=== PATIENT | female | born 1955 | race Caucasian/White ===

== ENCOUNTER → 2017-11-26 | Outpatient (CLI) | payer BC ==
--- NOTE | 2017-11-27 08:45 | RADIOLOGY REPORT (SQ) ---
EXAM DESCRIPTION: PET CT SKULL/THIGH COMPLETED DATE/TIME: 11/26/2017 8:24 pm REASON FOR STUDY: LUNG CANCER C34.11 MALIGNANT NEOPLASM OF UPPER LOBE, RIGHT BRONCHUS OR L COMPARISON: CT chest [facility] 11/16/2017 RADIONUCLIDE AND DOSE: 12 mCi F18 FDG The route of agent administration: Intravenous FASTING BLOOD SUGAR: 104 mg/dl CONTRAST TYPE AND DOSE: No CT contrast given. TECHNIQUE: Blood glucose level was verified. Above dose of FDG was injected intravenously. 2-D seg mented attenuation correction images were obtained from the base of the skull to the midthighs. Nonc ontrast CT images were obtained for attenuation correction and fusion with emission images. CT image s were performed without oral or intravenous contrast and are not sensitive for parenchymal lesions. A series of overlapping emission PET images were obtained. Images reviewed and manipulated at [facility] work station by the radiologist. Images stored on PACS. LIMITATIONS: None. FINDINGS: HEAD AND NECK: 1.8 x 1.7 cm right carotid space lymph node, SUV 2.6. Right vocal cord par alysis CHEST: In the right middle lobe/inferior right hilum, a 3.6 by 3.1 cm mass is present with SUV of 8 w orrisome for primary lung tumor. This mass is best shown on axial image 103. Significant mediastinal adenopathy is present as follows: Right paratracheal 2.6 x 1.6 cm node with SUV 3.0 Precarinal 2.7 x 2.2 cm node SUV 4.9 Sub- carinal 3 x 2.2 cm node SUV 4.1 There is a small to moderate right pleural effusion without pleural activity. Thickened interlobular septa with patchy alveolar and interstitial infiltrates are present throughout the remainder of the right lung, which could represent lymphangitic tumor or superimposed infection. This patchy activity ranges from 2.1 to 2.5 SUV. ABDOMEN AND PELVIS: No areas of abnormal metabolic activity in the abdomen or pelvis. Non metabolic 2 x 1.5 cm left adrenal adenoma, SUV 0.99. Expected physiologic activity is present in the genitouri nary system and bowel. PROXIMAL LOWER EXTREMITIES: No areas of abnormal metabolic activity in the soft tissues of the lower extremities. BONES: No abnormal metabolic activity in the visualized skeleton. ADDITIONAL CT FINDINGS: Heavily calcified carotid bifurcations, aortic valve and coronary arteries. Trace pericardial effusion. IUD in the uterus. OTHER: Liver background activity 2.2 SUV. Blood pool background activity 1.6 SUV IMPRESSION: Malignant right middle lobe mass with malignant appearing mediastinal adenopathy, a righ t pleural effusion and diffuse interstitial increased markings throughout the right lung worrisome fo r lymphangitic tumor involvement. Aspiration pneumonia could not be excluded, patient has right-side d vocal cord paralysis TECHNICAL DOCUMENTATION: JOB ID: [id number] [employer]- All Rights Reserved Reading location - IP/workstation name: [facility]
== END ==
LOC: RAD 17:34
PROVIDERS: ATTEND Internal Medicine
DX: C34.11 Malignant neoplasm of upper lobe, right bronchus or lung (principal)
CPT/HCPCS: 78815; A9552

== ENCOUNTER 2017-12-06 17:37 | Emergency (ER) | payer BC ==
[2017-12-06] MEDS ORDERED: NORMAL SALINE 1000 ML 1,000 ML IV PRN (18:12)
--- NOTE | 2017-12-06 18:13 | ER Document Report ---
ED Medical Screen (RME) - General Chief Complaint: Palpitations Stated Complaint: RAPID HEART RATE Time Seen by Provider: 12/06/17 18:10 Mode of Arrival: Ambulatory Information source: Patient Notes: 62 years old female recently diagnosed with possible lung cancer had a biopsy done last week, was having coughing and shortness of breath as well as palpitation on and off therefore present to the ED. She has not been eating or drinking well. No fever chills or other constitutional symptoms She was diagnosed with pneumonia and treated recently. Right lung half the lung field he has inspiratory rales and crackles TRAVEL OUTSIDE OF THE [place] IN LAST 30 DAYS: No - Related Data Allergies/Adverse Reactions: Sulfa (Sulfonamide Antibiotics) Allergy (Verified 12/06/17 17:38) Past Medical History - Social History Chew tobacco use (# tins/day): No Drug Abuse: None - Past Medical History Cardiac Medical History: Reports: Hx Heart Attack, Hx Hypercholesterolemia, Hx Hypertension Pulmonary Medical History: Denies: Hx Tuberculosis Neurological Medical History: Denies: Hx Seizures Renal/ Medical History: Denies: Hx Peritoneal Dialysis Past Surgical History: Denies: Hx Hysterectomy, Hx Pacemaker - Immunizations Hx Diphtheria, Pertussis, Tetanus Vaccination: Yes - 06/2011 Physical Exam - Vital signs Vitals: Temp Pulse Resp BP Pulse Ox 98.7 F 132 H 18 135/96 H 94 12/06/17 17:56 12/06/17 17:56 12/06/17 17:56 12/06/17 17:56 12/06/17 17:56 Course - Vital Signs Vital signs: Temp Pulse Resp BP Pulse Ox 98.7 F 132 H 18 135/96 H 94 12/06/17 17:56 12/06/17 17:56 12/06/17 17:56 12/06/17 17:56 12/06/17 17:56 Doctor's Discharge - Discharge Referrals: ROLAN MAE MD [Primary Care Provider] - Follow up as needed
[2017-12-06 19:04] LABS: ABSOLUTE LYMPHOCYTES (AUTO) 2.1 10^3/uL (0.5-4.7); ABSOLUTE MONOCYTES (AUTO) 0.7 10^3/uL (0.1-1.4); ABSOLUTE NEUT (AUTO) 5.3 10^3/uL (1.7-8.2); BASOPHILS % (AUTO) 0.3 % (0-2); EOSINOPHILS % (AUTO) 0.5 % (0-6); HEMATOCRIT 44.9 % (36.0-47.0); HEMOGLOBIN 15.1 g/dL (12.0-15.5); LYMPHOCYTES % (AUTO) 25.3 % (13-45); MEAN CORPUSCULAR HEMOGLOBIN 28.3 pg (27.0-33.4); MEAN CORPUSCULAR HGB CONC 33.7 g/dL (32.0-36.0); MEAN CORPUSCULAR VOLUME 84 fl (80-97); MONOCYTES % (AUTO) 8.9 % (3-13); PLATELET COUNT 288 10^3/uL (150-450); RED BLOOD COUNT 5.35 10^6/uL (3.72-5.28); RED CELL DISTRIBUTION WIDTH 12.5 % (11.5-14.0); TOTAL CELLS COUNTED % (AUTO) 100 %; WHITE BLOOD COUNT 8.1 10^3/uL (4.0-10.5)
[2017-12-06 19:06] LABS: APPEARANCE,URINE CLOUDY; BILIRUBIN,URINE SMALL (NEGATIVE); CALCIUM OXALATE CRYSTALS,URINE FEW /HPF; GLUCOSE, URINE 50 mg/dL (NEGATIVE); KETONES,URINE 80 mg/dL (NEGATIVE); LEUKOCYTE ESTERASE,URINE SMALL (NEGATIVE); NITRITE,URINE NEGATIVE (NEGATIVE); PROTEIN,URINE 100 mg/dL (NEGATIVE); URINE SPECIFIC GRAVITY 1.025
[2017-12-06 19:08] LABS: COLOR,URINE DARK YELLOW
[2017-12-06 19:22] LABS: ALANINE AMINOTRANSFERASE 17 U/L (9-52); ALBUMIN 4.1 g/dL (3.5-5.0); ALKALINE PHOSPHATASE 60 U/L (38-126); ANION GAP 17 (5-19); ASPARTATE AMINO TRANSFERASE 39 U/L (14-36); BILIRUBIN,DIRECT 0.5 mg/dL (0.0-0.4); BILIRUBIN,TOTAL 1.2 mg/dL (0.2-1.3); BLOOD UREA NITROGEN 14 mg/dL (7-20); CALCIUM 10.4 mg/dL (8.4-10.2); CARBON DIOXIDE 27 mmol/L (22-30); CHLORIDE 95 mmol/L (98-107); GLUCOSE 127 mg/dL (75-110); POTASSIUM 3.5 mmol/L (3.6-5.0); SODIUM 139.3 mmol/L (137-145)
[2017-12-06] MEDS ORDERED: RINGERS SOLUTION,LACTATED 1,000 ML IV ONE (19:24)
--- NOTE | 2017-12-06 19:24 | EKG REPORT ---
SEVERITY:- BORDERLINE ECG - SINUS TACHYCARDIA BORDERLINE INFERIOR Q WAVES BORDERLINE T ABNORMALITIES, DIFFUSE LEADS : Confirmed by: Gabriel Blake MD 06-Dec-2017 19:24:00
[2017-12-06] MEDS ORDERED: NORMAL SALINE 1000 ML 1,000 ML IV ONE (19:42)
[2017-12-06] MEDS ORDERED: ONDANSETRON HCL INJ/PF 4 MG/2 ML SDV IV ONE ×2 (19:42→23:44)
--- NOTE | 2017-12-06 19:54 | ER Document Report ---
ED General - General Chief Complaint: Palpitations Stated Complaint: RAPID HEART RATE Time Seen by Provider: 12/06/17 18:10 Mode of Arrival: Ambulatory Information source: Patient, Relative, [facility] Records, Outside Facility Records Notes: 62-year-old female with coronary artery disease, hypertension, recent diagnosis of right lung cancer presents from her primary care physician's office after she was found to be persistently tachycardic with a rate reported to be in the 130s. Patient complaining of associated shortness of breath which she reports is not worse than it has been over the last few weeks. She does report a decrease in p.o. intake including food and fluids. She does report a decrease in urinary output. She states that she has had chronic nausea and just does not want to eat or drink anything. She denies any previous history of PE, DVT. She did have a recent thoracentesis at [facility] by Dr. davis. She is set to be under the care of Dr. Fields and has an upcoming appointment this Monday. She also had a recent bronchoscopy but does not have any results at this time. Patient denies leg swelling, prior history of PE or DVT. TRAVEL OUTSIDE OF THE [place] IN LAST 30 DAYS: No - HPI Onset: Just prior to arrival Onset/Duration: Gradual, Persistent Quality of pain: Achy, Pressure Severity: Moderate Associated symptoms: Chest pain, Nonproductive cough, Headache, Nausea, Shortness of breath. denies: Fever, Vomiting Exacerbated by: Denies Relieved by: Denies Similar symptoms previously: Yes Recently seen / treated by doctor: Yes - Recently discharged from [facility] - Related Data Allergies/Adverse Reactions: Sulfa (Sulfonamide Antibiotics) Allergy (Verified 12/06/17 17:38) Past Medical History - General Information source: Patient, Friend, [facility] Records, Outside Facility Records - Social History Smoking Status: Former Smoker Chew tobacco use (# tins/day): No Drug Abuse: None Lives with: Family Family History: Reviewed & Not Pertinent Patient has suicidal ideation: No Patient has homicidal ideation: No - Past Medical History Cardiac Medical History: Reports: Hx Heart Attack, Hx Hypercholesterolemia, Hx Hypertension Pulmonary Medical History: Reports: Hx Pneumonia Denies: Hx Tuberculosis Neurological Medical History: Denies: Hx Seizures Renal/ Medical History: Denies: Hx Peritoneal Dialysis Past Surgical History: Denies: Hx Hysterectomy, Hx Pacemaker - Immunizations Hx Diphtheria, Pertussis, Tetanus Vaccination: Yes - 06/2011 Review of Systems - Review of Systems Notes: REVIEW OF SYSTEMS: CONSTITUTIONAL : Denies fever, chills, or sweats. Denies recent illness. Denies weight loss, recent hospitalizations. EENT: Denies visual changes, eye pain. Denies nasal or sinus congestion or discharge. Denies sore throat, oral lesions, difficulty swallowing. CARDIOVASCULAR: Denies lower extremity edema. RESPIRATORY: Denies cough, cold, or chest congestion. GASTROINTESTINAL: Denies abdominal pain or distention. Denies nausea, vomiting , or diarrhea. Denies blood in vomitus, stools, or per rectum. Denies black, tarry stools. Denies constipation. GENITOURINARY: Denies difficulty urinating, painful urination, frequency, blood in urine, or vaginal discharge. MUSCULOSKELETAL: Denies back or neck pain or stiffness. Denies joint pain or swelling. SKIN: Denies rash, lesions or sores. HEMATOLOGIC : Denies easy bruising or bleeding. LYMPHATIC: Denies swollen glands. NEUROLOGICAL: Denies confusion or altered mental status. Denies passing out or loss of consciousness. Denies dizziness or lightheadedness. Denies headache. Denies weakness or paralysis. Denies problems difficulty with ambulation, slurred speech. Denies sensory loss, numbness, or tingling. Denies seizures. PSYCHIATRIC: Denies anxiety or stress. Denies depression, suicidal ideation, or homicidal ideation. Denies visual or auditory hallucinations. Physical Exam - Vital signs Vitals: Temp Pulse Resp BP Pulse Ox 98.7 F 132 H 18 135/96 H 94 12/06/17 17:56 12/06/17 17:56 12/06/17 17:56 12/06/17 17:56 12/06/17 17:56 - Notes Notes: PHYSICAL EXAMINATION: GENERAL: Well-appearing, well-nourished and in no acute distress. HEAD: Atraumatic, normocephalic. EYES: Pupils equal round and reactive to light, extraocular movements intact, conjunctiva are normal. ENT: Nares patent, oropharynx clear without exudates. Dry mucous membranes. NECK: Normal range of motion, supple without lymphadenopathy LUNGS: Diminished breath sounds in the right upper and right lower lung troy. HEART: tachycardic, regular rhythm, no murmurs. ABDOMEN: Soft, nontender, nondistended abdomen. No guarding, no rebound. No masses appreciated. Female : deferred Musculoskeletal: Normal range of motion, no pitting or edema. No cyanosis. NEUROLOGICAL: Cranial nerves grossly intact. Normal speech, normal gait. Normal sensory, motor exams PSYCH: Normal mood, normal affect. SKIN: Warm, Dry, normal turgor, no rashes or lesions noted. Course - Re-evaluation Re-evalutation: 12/06/17 23:45 Laboratory 12/06/17 12/06/17 12/06/17 18:46 18:46 18:46 WBC 8.1 RBC 5.35 H Hgb 15.1 Hct 44.9 MCV 84 MCH 28.3 MCHC 33.7 RDW 12.5 Plt Count 288 Seg Neutrophils % 65.0 Lymphocytes % 25.3 Monocytes % 8.9 Eosinophils % 0.5 Basophils % 0.3 Absolute Neutrophils 5.3 Absolute Lymphocytes 2.1 Absolute Monocytes 0.7 Absolute Eosinophils 0.0 Absolute Basophils 0.0 Sodium 139.3 Potassium 3.5 L Chloride 95 L Carbon Dioxide 27 Anion Gap 17 BUN 14 Creatinine 0.52 Est GFR ( Amer) > 60 Est GFR (Non-Af Amer) > 60 Glucose 127 H Lactic Acid Calcium 10.4 H Total Bilirubin 1.2 Direct Bilirubin 0.5 H Neonat Total Bilirubin Not Reportable Neonat Direct Bilirubin Not Reportable Neonat Indirect Bili Not Reportable AST 39 H ALT 17 Alkaline Phosphatase 60 Creatine Kinase CK-MB (CK-2) Troponin I Total Protein 7.0 Albumin 4.1 Urine Color DARK YELLOW Urine Appearance CLOUDY Urine pH 5.0 Ur Specific Corn 1.025 Urine Protein 100 H Urine Glucose (UA) 50 H Urine Ketones 80 H Urine Blood SMALL H Urine Nitrite NEGATIVE Urine Bilirubin SMALL H Urine Urobilinogen 4.0 H Ur Leukocyte Esterase SMALL H Urine WBC (Auto) 0 Urine RBC (Auto) 1 Squamous Epi Cells Auto <1 Calcium Oxalate Cr Auto FEW Urine Mucus (Auto) OCC Urine Ascorbic Acid NEGATIVE 12/06/17 12/06/17 12/06/17 18:46 18:46 18:46 WBC RBC Hgb Hct MCV MCH MCHC RDW Plt Count Seg Neutrophils % Lymphocytes % Monocytes % Eosinophils % Basophils % Absolute Neutrophils Absolute Lymphocytes Absolute Monocytes Absolute Eosinophils Absolute Basophils Sodium Potassium Chloride Carbon Dioxide Anion Gap BUN Creatinine Est GFR ( Amer) Est GFR (Non-Af Amer) Glucose Lactic Acid 1.4 Calcium Total Bilirubin Direct Bilirubin Neonat Total Bilirubin Neonat Direct Bilirubin Neonat Indirect Bili AST ALT Alkaline Phosphatase Creatine Kinase 31 CK-MB (CK-2) < 0.22 Troponin I < 0.012 Total Protein Albumin Urine Color Urine Appearance Urine pH Ur Specific Corn Urine Protein Urine Glucose (UA) Urine Ketones Urine Blood Urine Nitrite Urine Bilirubin Urine Urobilinogen Ur Leukocyte Esterase Urine WBC (Auto) Urine RBC (Auto) Squamous Epi Cells Auto Calcium Oxalate Cr Auto Urine Mucus (Auto) Urine Ascorbic Acid Chest X-Ray 12/06/17 18:11 IMPRESSION: Increased patchy airspace opacities throughout the right lung base. Similar right parahilar mass. Chest/Abdomen CTA 12/06/17 19:24 IMPRESSION: No emboli visualized in the main pulmonary arteries or the segmental branches.Similar 3.7 cm right middle lobe parahilar mass obstructing right middle lobe bronchus. Scattered patchy airspace opacities are present throughout the right upper, right middle, and right lower lobes, slightly increased compared with the prior study. Diffuse interstitial -reticulonodular thickening consistent with lymphangitic spread of tumor. Moderate right pleural effusion, slightly diminished compared with the prior exam. Patient declining admission at this 12/07/17 14:18 62-year-old female presents from her primary care physician's office after found to be persistently tachycardic. Patient was recently diagnosed with right -sided lung cancer. Upon arrival patient is tachycardic but not hypoxic or febrile. Patient appears dehydrated but does not appear toxic. She is in no acute respiratory distress. She states that her shortness of breath is no worse than it has been over the last couple of months. Patient was recently released from [facility] where she was diagnosed with this cancer and a thoracentesis was performed. She states that approximately 1 L of fluid was removed and the procedure was stopped early because of the patient's intolerance. Denies any prior history of PE or DVT. CBC is without leukocytosis or anemia. CMP shows no electrolyte abnormalities. Patient does have an elevated calcium which would be suspected with cancer. Urinalysis shows significant ketones which is consistent with dehydration. Cardiac enzymes within normal limits. Friend is at the bedside and states that the patient has just been refusing to drink water because of her persistent nausea. She does have Zofran at home but has yet to fill the prescription. CTA was obtained to assess for evidence of PE. This shows perihilar mass and a moderate right pleural effusion which is slightly diminished from previous exam. Patient did receive 3 L of IV fluids, Zofran. Her heart rate has improved to 96 prior to discharge. She is able to tolerate fluids after receiving Zofran. Hospital admission was offered multiple times but patient declines. Her friend is at the bedside and states that she believes that between her and herself she would be able to take care of the patient and encourage her to drink fluids. Patient does have an upcoming appointment with oncology and is requesting discharge home. Patient provided the opportunity to ask questions, and express concerns. Discharge instructions discussed. Patient is agreeable with discharge home. Return indications explained and discussed with the patient who displays understanding. Patient encouraged to return to the emergency department immediately with any concerns. 12/07/17 14:23 - Vital Signs Vital signs: Temp Pulse Resp BP Pulse Ox 98.7 F 132 H 20 137/75 H 97 12/06/17 17:56 12/06/17 17:56 12/06/17 23:57 12/06/17 23:57 12/07/17 00:00 - Laboratory Result Diagrams: 12/06/17 18:46 12/06/17 18:46 Laboratory results interpreted by me: 12/06/17 12/06/17 12/06/17 18:46 18:46 18:46 RBC 5.35 H Potassium 3.5 L Chloride 95 L Glucose 127 H Calcium 10.4 H Direct Bilirubin 0.5 H AST 39 H Urine Protein 100 H Urine Glucose (UA) 50 H Urine Ketones 80 H Urine Blood SMALL H Urine Bilirubin SMALL H Urine Urobilinogen 4.0 H Ur Leukocyte Esterase SMALL H - Diagnostic Test Radiology reviewed: Image reviewed, Reports reviewed - EKG Interpretation by Me EKG shows normal: Sinus rhythm Rate: Normal Rhythm: NSR Discharge - Discharge Clinical Impression: Tachycardia, Pleural effusion, Dehydration Lung cancer Qualifiers: Laterality: right Lung location: middle lobe of lung Qualified Code(s): C34.2 - Malignant neoplasm of middle lobe, bronchus or lung Condition: Fair Disposition: HOME, SELF-CARE Instructions: Dehydration ([facility]), Nausea or Vomiting, Nonspecific ([facility]), Pleural Effusion ([facility]) Additional Instructions: Please keep your already scheduled appointment with Dr. Fields on December 08. Your CAT scan today did not show any evidence of a clot in your lung. It does show that there is fluid in your lung which you are ready now. Please return to the emergency department with any concerns, worsening shortness of breath. Forms: Elevated Blood Pressure Referrals: ROLAN MAE MD [Primary Care Provider] - Follow up as needed
--- NOTE | 2017-12-06 20:10 | RADIOLOGY REPORT (SQ) ---
EXAM DESCRIPTION: CHEST SINGLE VIEW COMPLETED DATE/TIME: 12/06/2017 7:45 pm REASON FOR STUDY: Pneumonia COMPARISON: 11/26/2017 EXAM PARAMETERS: NUMBER OF VIEWS: One view. TECHNIQUE: Single frontal radiographic view of the chest acquired. RADIATION DOSE: NA LIMITATIONS: None. FINDINGS: LUNGS AND PLEURA: Increased patchy airspace opacities throughout the right lung base. Sim ilar right parahilar mass. MEDIASTINUM AND HILAR STRUCTURES: Similar right parahilar mass HEART AND VASCULAR STRUCTURES: Heart normal in size. Normal vasculature. BONES: No acute findings. HARDWARE: None in the chest. OTHER: No other significant finding. IMPRESSION: Increased patchy airspace opacities throughout the right lung base. Similar right parah ilar mass. TECHNICAL DOCUMENTATION: JOB ID: [id number] 2010 [employer]- All Rights Reserved Reading location - IP/workstation name: [email or web address]
--- NOTE | 2017-12-06 21:15 | RADIOLOGY REPORT (SQ) ---
EXAM DESCRIPTION: CTA CHEST COMPLETED DATE/TIME: 12/06/2017 8:54 pm REASON FOR STUDY: roma lubin COMPARISON: 11/26/2017 TECHNIQUE: CT scan of the chest performed using helical scanning technique with dynamic intravenous contrast injection. Images reviewed with lung, soft tissue and bone windows. Reconstructed coronal and sagittal MPR images reviewed. Additional 3 dimensional post-processing performed to develop Maximal Intensity Projection images (IA P). All images stored on PACS. All CT scanners at this facility use dose modulation, iterative reconstruction, and/or weight based d osing when appropriate to reduce radiation dose to as low as reasonably achievable (ALARA). [facility]: Dose Right [facility]: CareDose [facility]: Dose Right [facility]: Teradose 4D [facility]: [id number] CONTRAST TYPE AND DOSE: contrast/concentration: Isovue 350.00 mg/ml; Total Contrast Delivered: 65.0 ml; Total Saline Delivered: 70.0 ml Contrast bolus optimized for the pulmonary arteries. Not diagnostic for the aorta. RENAL FUNCTION: GFR > 60. RADIATION DOSE: CT Rad equipment meets quality standard of care and radiation dose reduction techniq ues were employed. CTDIvol: 6.6 - 14.3 mGy. DLP: 564 mGy-cm. . LIMITATIONS: None. FINDINGS: LUNGS AND PLEURA: Similar 3.7 cm right middle lobe parahilar mass obstructing right middle lobe bronchus. Scattered patchy airspace opacities are present throughout the right upper, right mi ddle, and right lower lobes, slightly increased compared with the prior study. Diffuse interstitial -reticulonodular thickening consistent with lymphangitic spread of tumor. Moderate right pleural eff usion, slightly diminished compared with the prior exam. The left lung remains clear. AORTA AND GREAT VESSELS: No aneurysm. Contrast bolus not optimized for the aorta. HEART: Small pericardial effusion. Mild coronary artery calcifications. PULMONARY ARTERIES: No emboli visualized in the main pulmonary arteries or the segmental branches. HILAR AND MEDIASTINAL STRUCTURES: Similar bulky nodes. HARDWARE: None in the chest. UPPER ABDOMEN: Left adrenal nodule. Limited exam. THYROID AND OTHER SOFT TISSUES: No masses. No adenopathy. BONES: No acute finding. 3D MIPS: Confirm above findings. OTHER: No other significant finding. IMPRESSION: No emboli visualized in the main pulmonary arteries or the segmental branches.Similar 3. 7 cm right middle lobe parahilar mass obstructing right middle lobe bronchus. Scattered patchy airsp tan opacities are present throughout the right upper, right middle, and right lower lobes, slightly i ncreased compared with the prior study. Diffuse interstitial -reticulonodular thickening consistent with lymphangitic spread of tumor. Moderate right pleural effusion, slightly diminished compared wit h the prior exam. COMMENT: Quality ID # [id number]: Final reports with documentation of one or more dose reduction techniques (e.g., Automated exposure control, adjustment of the mA and/or kV according to patient size, use of iterative reconstruction technique) TECHNICAL DOCUMENTATION: JOB ID: [id number] 2010 [employer]- All Rights Reserved Reading location - IP/workstation name: [facility] [employer] [facility]
[2017-12-06] MEDS ORDERED: GUAIFENESIN/CODEINE PHOS 100-10 MG/ 5 ML UDC PO ONE (21:32)
[2017-12-06 21:56] LABS: CREATINE KINASE MB < 0.22 ng/mL (<4.55); TROPONIN I < 0.012 ng/mL
[2017-12-06] MEDS ORDERED: ONDANSETRON ODT 4 MG TAB (6 TAB/ER DISP) PO PRN (23:44)
[2017-12-07 00:25] VITALS: BP 137/75
== END 2017-12-07 00:05 | disposition home or self-care (01) ==
LOC: ER 17:37
DX: R00.0 Tachycardia, unspecified (principal); E86.0 Dehydration; C34.2 Malignant neoplasm of middle lobe, bronchus or lung; R05 Cough; R00.2 Palpitations; I25.10 Atherosclerotic heart disease of native coronary artery without angina pectoris; I10 Essential (primary) hypertension; R07.9 Chest pain, unspecified; R51 Headache; R06.02 Shortness of breath; Z88.2 Allergy status to sulfonamides
CPT/HCPCS: 93005; 99285; 96360; 96361; 36415; 87040; 82553; 82550; 85025; 87077; 80053; 81001; 84484; 87186; 83605; 71045; 71275; 93010; J2405; J7030; J7120

== ENCOUNTER 2018-01-15 07:13 | Day surgery (SDC) | payer BC ==
[~2018-01-15 07:13] MED LIST: CEFAZOLIN 1 GM/D5W RTU 1 GM/50 ML RTUPB IV PRN; DIAZEPAM 5 MG TABLET PO PRN; OXYCODONE-ACETAMINOPHEN 5-325 MG TABLET PO PRN
[2018-01-15] MEDS ORDERED: CEFAZOLIN 1 GM/D5W RTU 1 GM/50 ML RTUPB IV ONE (08:02)
[2018-01-15 08:36] LABS: HEMATOCRIT 38.7 % (36.0-47.0); MEAN CORPUSCULAR HEMOGLOBIN 26.8 pg (27.0-33.4); MEAN CORPUSCULAR HGB CONC 33.5 g/dL (32.0-36.0); MEAN CORPUSCULAR VOLUME 80 fl (80-97); RED BLOOD COUNT 4.84 10^6/uL (3.72-5.28); RED CELL DISTRIBUTION WIDTH 12.7 % (11.5-14.0); WHITE BLOOD COUNT 2.6 10^3/uL (4.0-10.5)
[2018-01-15] MEDS ORDERED: DIAZEPAM 5 MG TABLET ONE (08:46)
[2018-01-15 09:02] LABS: ANION GAP 12 (5-19); BLOOD UREA NITROGEN 14 mg/dL (7-20); CALCIUM 9.8 mg/dL (8.4-10.2); CARBON DIOXIDE 24 mmol/L (22-30); CHLORIDE 100 mmol/L (98-107); GLUCOSE 95 mg/dL (75-110); POTASSIUM 4.3 mmol/L (3.6-5.0); SODIUM 136.1 mmol/L (137-145)
[2018-01-15 09:09] LABS: PLATELET COUNT 37 10^3/uL (150-450)
[2018-01-15] MEDS ORDERED: BACITRACIN INJ 50,000 UNIT VIAL ONE (10:13)
[2018-01-15] MEDS ORDERED: LIDOCAINE 0.5% INJ-PF (5 MG/ML) 50 ML SDV ONE (10:13)
[2018-01-15] MEDS ORDERED: MIDAZOLAM 2 MG/2 ML INJ ONE (10:16)
[2018-01-15] MEDS ORDERED: FENTANYL CITRATE INJ/PF 100 MCG/2 ML AMPUL ONE (10:16)
--- NOTE | 2018-01-15 11:47 | Discharge Summary ---
Discharge Summary (SDC) - Discharge Final Diagnosis: Lung cancer Date of Surgery: 01/15/18 Discharge Date: 01/15/18 Condition: Fair Treatment or Instructions: Discharge home [after recovery per ASU criteria]. Diet , as tolerated, when fully awake advance as tolerated. Activities within moderation encouraged. Follow up in my office by appointment in about [1 week]. Call for appointment. Leave wounds [covered], [keep clean and dry, until office visit in 1 week]. Hold of on school/work [until evaluation in office]. Meds per med rec. Percocet. May shower [in 48 hrs], [try to keep operated area as dry as possible]. Referrals: NIKITA AVELAR MD [Primary Care Provider] - Discharge Diet: As Tolerated Respiratory Treatments at Home: Deep Breathing/Coughing Discharge Activity: Activity As Tolerated Report the Following to Your Physician Immediately: Shortness of Breath, Unusual Bleeding
--- NOTE | 2018-01-15 11:52 | Operative Report ---
Operative Report DATE OF SURGERY: 01/15/18 PREOPERATIVE DIAGNOSIS: Lung cancer POSTOPERATIVE DIAGNOSIS: Lung cancer OPERATION: 1. Ultrasound evaluation of the left internal jugular vein and the left subclavian veins. 2. Insertion of left-sided Port-A-Cath. 3. Angiogram and interpretation. SURGEON: FRANKY MOFFETT CARPENTER: None. ANESTHESIA: Moderate Sedation TISSUE REMOVED OR ALTERED: Not applicable. COMPLICATIONS: None. ESTIMATED BLOOD LOSS: 5 mL. INTRAOPERATIVE FINDINGS: Of small, bifurcated left internal jugular vein. Several attempts were unsuccessful in access even after rehydrating the patient. Access gained under ultrasound guidance into the left subclavian vein which is appropriately dilated up to 1.5 cm. Satisfactory insertion of Port-A- Cath. Easy egress of blood and ingress of heparinized solution. Smooth flow of contrast through the catheter and the right atrium. PROCEDURE: After obtaining informed consent, the patient was taken to the [facility] and positioned supine. The [left neck and chest were prepared with chlorhexidine and draped out with sterile linen. After the " universal timeout", in which it was verified that the patient continued to receive antibiotic, the procedure commenced. A steriley sheathed ultrasound probe was used to evaluate the left internal jugular vein. Local anesthesia was infiltrated adjacent to the probe. Access into the left internal jugular vein was attempted using a micropuncture needle. Diligent attempts even after rehydrating the patient were unsuccessful. Ultrasound evaluation of the left subclavian vein was now obtained using a micropuncture needle, followed by micropuncture wire and then a micropuncture catheter. This was followed by introduction of a 0.035 guidewire the tip of which was placed down into the inferior vena cava . The port sites was marked , locally anesthetized and incision made. Dissection now proceeded to the deep subcutaneous subcutaneous tissues so that a pocket for the port was made. Meticulous hemostasis was secured and the catheter was inserted. Proximally, the catheter was now positioned using a peel-away sheath. Distally the catheter was tailored to an appropriate length and then mated to the port using the contained fixating device. The port was now placed in the pocket and the catheter optimally positioned. The port was accessed with a [place] needle and an angiogram done under digital subtraction. The findings as dictated. With adequate and satisfactory positioning, both lumens of the chamber were irrigated with heparinized solution. The wounds were now closed using interrupted 3-0 PDS to the subcutaneous tissues and a continuous subcuticular suture of 4-0 Monocryl to the skin. These are reinforced with Steri-Strips over benzoin and then dressings applied. Time: 1.4 minute. Dose: 11.21 m Gy Contrast: 5 Mls. Isovue 300. Copies of the dictated operative report for Dr. Franky Frias MD.
--- NOTE | 2018-01-15 12:19 | RADIOLOGY REPORT (SQ) ---
EXAM DESCRIPTION: PORTACATH INSERTION; GUIDANCE FLUOROSCOPIC COMPLETED DATE/TIME: 01/15/2018 11:49 am REASON FOR STUDY: C34.11 RT UPPER LUNG C34.11 MALIGNANT NEOPLASM OF UPPER LOBE, RIGHT BRONCHUS OR L COMPARISON: CT chest 12/06/2017 FLUOROSCOPY TIME: 1.4 minutes 24 images saved to PACS. TECHNIQUE: Intra-operative images acquired during surgical procedure to evaluate progress. NUMBER OF IMAGES: 24 digital images LIMITATIONS: None. FINDINGS: Imaging and fluoro during placement of a left-sided permanent central line with the tip in the superior vena cava. Please see the operative report from Dr. Frias IMPRESSION: IMAGE(S) OBTAINED DURING PROCEDURE. COMMENT: Quality ID 145: Final reports for procedures using fluoroscopy that document radiation exp osure indices, or exposure time and number of fluorographic images (if radiation exposure indices are not available) Please consult full operative report of the attending physician for description of the procedure. TECHNICAL DOCUMENTATION: JOB ID: [id number] [employer]- All Rights Reserved Reading location - IP/workstation name: [facility]
--- NOTE | 2018-01-15 12:19 | RADIOLOGY REPORT (SQ) ---
EXAM DESCRIPTION: PORTACATH INSERTION; GUIDANCE FLUOROSCOPIC COMPLETED DATE/TIME: 01/15/2018 11:49 am REASON FOR STUDY: C34.11 RT UPPER LUNG C34.11 MALIGNANT NEOPLASM OF UPPER LOBE, RIGHT BRONCHUS OR L COMPARISON: CT chest 12/06/2017 FLUOROSCOPY TIME: 1.4 minutes 24 images saved to PACS. TECHNIQUE: Intra-operative images acquired during surgical procedure to evaluate progress. NUMBER OF IMAGES: 24 digital images LIMITATIONS: None. FINDINGS: Imaging and fluoro during placement of a left-sided permanent central line with the tip in the superior vena cava. Please see the operative report from Dr. Frias IMPRESSION: IMAGE(S) OBTAINED DURING PROCEDURE. COMMENT: Quality ID 145: Final reports for procedures using fluoroscopy that document radiation exp osure indices, or exposure time and number of fluorographic images (if radiation exposure indices are not available) Please consult full operative report of the attending physician for description of the procedure. TECHNICAL DOCUMENTATION: JOB ID: [id number] [employer]- All Rights Reserved Reading location - IP/workstation name: [facility]
[2018-01-15 13:16] VITALS: BP 140/94
== END 2018-01-15 13:05 | disposition home or self-care (01) ==
LOC: CCL 07:13
PROVIDERS: ATTEND Surgery
DX: C34.11 Malignant neoplasm of upper lobe, right bronchus or lung (principal); I25.10 Atherosclerotic heart disease of native coronary artery without angina pectoris; I10 Essential (primary) hypertension; E78.00 Pure hypercholesterolemia, unspecified; Z87.891 Personal history of nicotine dependence; Z79.899 Other long term (current) drug therapy; Z01.818 Encounter for other preprocedural examination
CPT/HCPCS: 36415; 85027; 80048; 36561; 76937; 77001; C1752; C1788; Q9967; J2250; J3490 ×2; J0690; J3010; J1644

== ENCOUNTER → 2018-02-09 | Outpatient (CLI) | payer BC ==
--- NOTE | 2018-02-09 09:03 | RADIOLOGY REPORT (SQ) ---
EXAM DESCRIPTION: CT CHEST WITH COMPLETED DATE/TIME: 02/09/2018 8:08 am REASON FOR STUDY: LUNG CA (C34.11) C34.11 MALIGNANT NEOPLASM OF UPPER LOBE, RIGHT BRONCHUS OR L COMPARISON: 12/06/2017 TECHNIQUE: CT scan of the chest performed using helical scanning technique with dynamic intravenous contrast injection. Images reviewed with lung, soft tissue and bone windows. Reconstructed coronal and sagittal MPR and MIP images reviewed. All images stored on PACS. All CT scanners at this facility use dose modulation, iterative reconstruction, and/or weight based d osing when appropriate to reduce radiation dose to as low as reasonably achievable (ALARA). [facility]: Dose Right [facility]: CareDose [facility]: Dose Right [facility]: Teradose 4D [facility]: SensorWave CONTRAST TYPE AND DOSE: 70.2 cc Omnipaque 350 RENAL FUNCTION: Creatinine - 0.47 BUN=14 RADIATION DOSE: Total exam DLP: 646.62 mGy-cm. LIMITATIONS: None. FINDINGS: LUNGS AND PLEURA: Since the previous examination dated 12/06/2017, significant marked incr eased in the right pleural effusion. Very large pleural effusion is identified on the current examin ation. Mild to moderate narrowing of the distal right mainstem bronchus and marked narrowing of the right proximal-middle lobe bronchi. The mid-distal right upper lobe bronchus is obstructed. The grant earance of the right lung has changed. There is almost complete consolidation of the right lung with some sparing in the right upper lobe. Considerations for this finding includes inflammatory changes , atelectasis. The previously identified right middle lobe-parahilar mass is not visualized, may be related to previous treatment and or obscuration of any remaining mass by the right lung consolidatio n. New small left pleural effusion. The left lung remains clear. The left central airway is clear. No pneumothorax. HILAR AND MEDIASTINAL STRUCTURES: Persistent mediastinal lymphadenopathy which is decreasing. The ly mph node adjacent and inferior to the mid-distal abdominal aorta on the left has decreased in size in the interval. HEART AND VASCULAR STRUCTURES: Atherosclerotic changes involving the thoracic aorta. Coronary arter y calcifications. No aneurysm or dissection. No central pulmonary emboli. Persistent pericardial e ffusion. HARDWARE: Left Hbdfle-J-Ogrh catheter. UPPER ABDOMEN: Please see CT abdomen report. THYROID AND OTHER SOFT TISSUES: No masses. No adenopathy. BONES: The osseous structures are stable in appearance. OTHER: No other significant finding. IMPRESSION: 1. Since the previous examination dated 12/06/2017, significant marked increase in size of the right pleural effusion. Interval change in the appearance of the right lung with almost compl ete consolidation identified which may be on the basis of inflammatory changes/atelectasis, possibly related to prior treatment. 2. The previously identified right middle lobe-parahilar mass is not visualized, may be related to t reatment and or any remaining mass obscured by the right lung consolidation. 3. New small left pleural effusion. 4. Persistent mediastinal lymphadenopathy which is decreasing in size. TECHNICAL DOCUMENTATION: JOB ID: [id number] Quality ID # [id number]: Final reports with documentation of one or more dose reduction techniques (e.g., Au tomated exposure control, adjustment of the mA and/or kV according to patient size, use of iterative reconstruction technique) 2010 [employer]- All Rights Reserved Reading location - IP/workstation name: [email or web address]
--- NOTE | 2018-02-09 09:39 | RADIOLOGY REPORT (SQ) ---
EXAM DESCRIPTION: CT ABD/PELVIS WITH IV ONLY COMPLETED DATE/TIME: 02/09/2018 8:08 am REASON FOR STUDY: LUNG CA (C34.11) C34.11 MALIGNANT NEOPLASM OF UPPER LOBE, RIGHT BRONCHUS OR L COMPARISON: 07/04/2011 TECHNIQUE: CT scan of the abdomen and pelvis performed using helical scanning technique with dynamic intravenous contrast injection. No oral contrast. Images reviewed with lung, soft tissue, and bone windows. Reconstructed coronal and sagittal MPR images reviewed. Delayed images for evaluation of the urinary system also acquired. All images stored on PACS. All CT scanners at this facility use dose modulation, iterative reconstruction, and/or weight based d osing when appropriate to reduce radiation dose to as low as reasonably achievable (ALARA). [facility]: Dose Right [facility]: CareDose [facility]: Dose Right [facility]: Teradose 4D [facility]: [place] CONTRAST TYPE AND DOSE: contrast/concentration: Isovue 350.00 mg/ml; Total Contrast Delivered: 70.0 ml; Total Saline Delivered: 66.0 ml RENAL FUNCTION: Creatinine- 0.47 BeUN=14 RADIATION DOSE: CT Rad equipment meets quality standard of care and radiation dose reduction techniq ues were employed. CTDIvol: 4.4 - 4.5 mGy. DLP: 647 mGy-cm.. LIMITATIONS: None. FINDINGS: LOWER CHEST: Please see CT chest report. LIVER: Normal size. No masses. No dilated ducts. The hepatic and portal veins are patent. SPLEEN: Normal size. No focal lesions. PANCREAS: No masses. No significant calcifications. No adjacent inflammation or peripancreatic fluid collections. Pancreatic duct not dilated. GALLBLADDER: The gallbladder is dilated. Mild diffuse gallbladder wall thickening, similar finding to the prior examination. A small amount of pericholecystic fluid is noted. ADRENAL GLANDS: Stable left adrenal low attenuated nodule, may represent an adenoma. RIGHT KIDNEY AND URETER: Small nonobstructing right renal calculus in the lower pole. LEFT KIDNEY AND URETER: Stable too small to characterize hypoattenuated renal lesion. No significant calcifications. No hydronephrosis or hydroureter. AORTA AND VESSELS: Mild atherosclerotic changes involving the abdominal aorta and branch vessels. N o aneurysm. No dissection. Renal arteries, SMA, celiac without stenosis. RETROPERITONEUM: No retroperitoneal adenopathy, hemorrhage or masses. BOWEL AND PERITONEAL CAVITY: No masses or inflammatory changes. No free fluid or peritoneal masses. APPENDIX: Normal. PELVIS: In the right obturator-right hemipelvis region, a large bulky lobulated soft tissue mass wit h the largest component measuring 2.7 cm x 2.3 cm, axial images 66-75, series 8. It lies inferior and adjacent to the right external iliac vessels and the right iliacus muscle. It also lies adjacent an d separate to the right iliac bone. There is some extension of the mass into the right inguinal richard on. Considerations for this finding includes metastatic disease. The appearance of the uterus is stable with IUD suggested. No free fluid. Normal bladder. ABDOMINAL WALL: No masses. No hernias. BONES: The osseous structures are stable in appearance. OTHER: No other significant finding. IMPRESSION: 1. Stable appearance to the low attenuated left adrenal nodule since the prior examinat ion dated 07/04/2011. Considerations for this finding includes an adenoma. 2. The gallbladder is dilated and a small amount parent cholecystic fluid is noted. Correlation sug gested. 3. Small nonobstructing right renal calculus. 4. A slightly heterogenous appearing bulky lobulated soft tissue mass in the right obturator-right h emipelvis region as detailed above. Considerations for this finding includes metastatic disease. 5. Additional stable findings. TECHNICAL DOCUMENTATION: JOB ID: [id number] Quality ID # 436: Final reports with documentation of one or more dose reduction techniques (e.g., Au tomated exposure control, adjustment of the mA and/or kV according to patient size, use of iterative reconstruction technique) 2010 [employer]- All Rights Reserved Reading location - IP/workstation name: [email or web address]
== END ==
LOC: RAD 07:24
PROVIDERS: ATTEND Internal Medicine
DX: C34.11 Malignant neoplasm of upper lobe, right bronchus or lung (principal); R19.00 Intra-abdominal and pelvic swelling, mass and lump, unspecified site; N20.0 Calculus of kidney
CPT/HCPCS: 71260; 74177

== ENCOUNTER 2018-02-15 09:16 | Day surgery (SDC) | payer BC ==
[2018-02-15] MEDS ORDERED: ONDANSETRON HCL INJ/PF 4 MG/2 ML SDV ONE ×2 (10:41→10:42)
[2018-02-15] MEDS ORDERED: GLUCAGON,HUMAN RECOMB 1 MG INJ ONE (10:43)
[2018-02-15] MEDS ORDERED: FLUMAZENIL INJ 0.5 MG/5 ML VIAL ONE (10:43)
[2018-02-15] MEDS ORDERED: EPINEPHRINE INJ 1 MG/10 ML DISP.SYRIN ONE (10:43)
[2018-02-15] MEDS ORDERED: NALOXONE HCL INJ/PF 0.4 MG/1 ML SDV ONE (10:43)
[2018-02-15] MEDS: MIDAZOLAM 2 MG/2 ML INJ ONE ×3 (10:58→11:07)
[2018-02-15] MEDS ORDERED: LIDOCAINE 2% INJ (20 MG/ML) 20 ML MDV ONE (10:59)
[2018-02-15] MEDS: FENTANYL CITRATE INJ/PF 100 MCG/2 ML AMPUL ONE ×3 (11:00→11:11)
--- NOTE | 2018-02-15 12:15 | Discharge Summary ---
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 Referrals: NIKITA AVELAR MD [Primary Care Provider] - Discharge Diet: As Tolerated Discharge Activity: Activity As Tolerated Report the Following to Your Physician Immediately: Shortness of Breath, Increase in Pain, Fever over 101 Degrees
--- NOTE | 2018-02-15 12:28 | Operative Report ---
Operative Report DATE OF SURGERY: 02/15/18 PREOPERATIVE DIAGNOSIS: Malignant right pleural effusion POSTOPERATIVE DIAGNOSIS: Same OPERATION: 1. Focused ultrasound of the right chest. 2. Insertion of 16 [place] right Pleurx catheter into the pleural space SURGEON: KARSON EDWARDS ANESTHESIA: Moderate Sedation TISSUE REMOVED OR ALTERED: None COMPLICATIONS: None ESTIMATED BLOOD LOSS: Scant INTRAOPERATIVE FINDINGS: See below PROCEDURE: The patient was taken from the holding area to the fifth floor endoscopy suite where monitoring devices were attached, the patient was placed in the left side down right side up position for intended drainage of the right chest up. Appropriate level of conscious sedation was induced. Surgical plan and surgical timeout were reviewed. The right anterior lateral chest wall was prepped and draped with chlorhexidine. A suitable site for placement of Pleurx catheter was chosen at approximately ICS 9 along the mid axillary line. Skin was anesthetized with 1% plain lidocaine. A small incision was made over the lateral chest, and using the 14-gauge needle and introducer, a wire was threaded into the right pleural space. A suitable site for exit of the catheter was chosen inferior and anterior to the initial stab wound. Skin was anesthetized lidocaine, a federico made in the skin with the 11 blade, and the Pleurx catheter tunnel between the 2 incisions. We then threaded a 16 [place] dilator introducer sheath over the wire into the right pleural space, remove the wire and dilator and threaded the catheter into the strip away sheath, removing the strip away sheath leaving the catheter in good position. The catheter was hooked to the proprietary tubing and to a vacuum container where there was immediate release of clear yellow pleural fluid. Wounds closed with a 3-0 Vicryl catheter secured with a 2-0 silk suture ; Biopatch applied sterile dressings applied. Patient taught procedure well. She is placed in the semirecumbent position now flat on her back. Drainage improved. Portable upright chest x-ray pending time dictation.
--- NOTE | 2018-02-15 12:43 | RADIOLOGY REPORT (SQ) ---
EXAM DESCRIPTION: CHEST SINGLE VIEW COMPLETED DATE/TIME: 02/15/2018 12:27 pm REASON FOR STUDY: MALIGNANT EFFUSION COMPARISON: CT chest 02/09/2018, 12/06/2017 Chest film 12/06/2017 EXAM PARAMETERS: NUMBER OF VIEWS: One view. TECHNIQUE: Single frontal radiographic view of the chest acquired. RADIATION DOSE: NA LIMITATIONS: None. FINDINGS: LUNGS AND PLEURA: A right-sided PleurX catheter is present with small 10 to 20% right apic al pneumothorax. Complete collapse of the right lung is present. Right hemithorax aside from the apical pneumothorax opacified by collapsed lung/residual pleural fluid. Right PleurX catheter in place. On the left side, minimal bandlike atelectasis is present at the left lung base. No gross left pleur al effusion or pneumothorax. MEDIASTINUM AND HILAR STRUCTURES: Right hilum obscured by the right lung consolidation HEART AND VASCULAR STRUCTURES: Heart normal in size. Normal vasculature. BONES: No acute findings. HARDWARE: The left permanent central line is present with the tip in the superior vena cava. Right P leurX catheter tip at the apex right hemithorax OTHER: No other significant finding. IMPRESSION: 10 20% right apical pneumothorax with PleurX catheter placed. Remainder of the right he mithorax is otherwise opacified with right pleural fluid/ collapsed lung. Bandlike airspace disease left lung base likely atelectasis TECHNICAL DOCUMENTATION: JOB ID: [id number]- All Rights Reserved Reading location - IP/workstation name: [facility]
[2018-02-15 13:54] VITALS: BP 139/91
== END 2018-02-15 13:00 | disposition home or self-care (01) ==
LOC: END 09:16
PROVIDERS: ATTEND Surgery
DX: C34.90 Malignant neoplasm of unspecified part of unspecified bronchus or lung (principal); E78.00 Pure hypercholesterolemia, unspecified; I25.10 Atherosclerotic heart disease of native coronary artery without angina pectoris; I10 Essential (primary) hypertension; Z87.891 Personal history of nicotine dependence; Z79.899 Other long term (current) drug therapy; Z88.2 Allergy status to sulfonamides; Z01.818 Encounter for other preprocedural examination
CPT/HCPCS: 32554; 71045; A4300; J2250; J3490; J3010; J2405; J0171; J1610; J2310

== ENCOUNTER 2018-04-05 08:56 | Outpatient (CLI) | payer BC ==
[~2018-04-05 08:56] MED LIST changes: -CEFAZOLIN 1 GM/D5W RTU 1 GM/50 ML RTUPB IV PRN; -DIAZEPAM 5 MG TABLET PO PRN; +NORMAL SALINE 250 ML IV PRN; -OXYCODONE-ACETAMINOPHEN 5-325 MG TABLET PO PRN
[2018-04-05 09:25] VITALS: BP 122/81
[2018-04-05] MEDS: MAGNESIUM SULFATE 1 GM/D5W 100 ML IV PRN ×2 (09:26→10:36)
== END 2018-04-05 12:24 | disposition home or self-care (01) ==
LOC: II 08:56 → 5TH 09:12 → II 12:24
PROVIDERS: ATTEND Internal Medicine
PROC: 3E043GC Introduction of Other Therapeutic Substance into Central Vein, Percutaneous Approach (ICD-10-PCS; principal; 2018-04-05)
DX: E83.42 Hypomagnesemia (principal)
CPT/HCPCS: 96365; 96366; 96367; J3475

== ENCOUNTER 2018-04-13 11:06 | Outpatient (CLI) | payer BC ==
[~2018-04-13 11:06] MED LIST changes: +MAGNESIUM SULFATE 1 GM/D5W 100 ML IV PRN
[2018-04-13] MEDS: MAGNESIUM SULFATE 1 GM/D5W 100 ML IV SCH ×2 (12:00→13:08)
== END 2018-04-13 14:58 | disposition home or self-care (01) ==
LOC: II 11:06 → 3W 11:07 → II 14:58
PROVIDERS: ATTEND Internal Medicine
PROC: 3E033GC Introduction of Other Therapeutic Substance into Peripheral Vein, Percutaneous Approach (ICD-10-PCS; principal; 2018-04-13)
DX: E83.42 Hypomagnesemia (principal)
CPT/HCPCS: J3475; J7050; 96365; 96366; 96367

== ENCOUNTER 2018-04-26 09:07 | Outpatient (CLI) | payer BC ==
[2018-04-26] MEDS ORDERED: NORMAL SALINE 250 ML IV PRN (09:29)
[2018-04-26 09:37] VITALS: BP 104/68
[2018-04-26] MEDS: MAGNESIUM SULFATE 1 GM/D5W 100 ML IV SCH ×2 (09:42→10:46)
== END 2018-04-26 12:37 | disposition home or self-care (01) ==
LOC: II 09:07 → 5TH 09:38 → II 12:37
PROVIDERS: ATTEND Internal Medicine
PROC: 3E043GC Introduction of Other Therapeutic Substance into Central Vein, Percutaneous Approach (ICD-10-PCS; principal; 2018-04-26)
DX: E83.42 Hypomagnesemia (principal)
CPT/HCPCS: 96367; J3475; 96365; 96366

== ENCOUNTER → 2018-05-14 | Outpatient (CLI) | payer BC ==
--- NOTE | 2018-05-14 13:48 | RADIOLOGY REPORT (SQ) ---
EXAM DESCRIPTION: CT CHEST WITH; CT ABD/PELVIS WITH IV ONLY COMPLETED DATE/TIME: 05/14/2018 10:49 am REASON FOR STUDY: MAL BERNADINE OF UPPER LOBE, RIGHT BRONCHUS OR LUNG C34.11 MALIGNANT NEOPLASM OF UPPER LOBE, RIGHT BRONCHUS OR L COMPARISON: CT chest abdomen pelvis 02/09/2018 PET-CT 11/26/2017 CONTRAST TYPE AND DOSE: contrast/concentration: Isovue 350.00 mg/ml; Total Contrast Delivered: 69.0 ml; Total Saline Delivered: 63.0 ml RENAL FUNCTION: Creatinine 0.6 TECHNIQUE: CT scan of the chest performed using helical scanning technique with dynamic intravenous contrast injection. Images reviewed with lung, soft tissue and bone windows. Reconstructed coronal a nd sagittal MPR images reviewed. All images stored on PACS. CT scan of the abdomen and pelvis performed with intravenous and with oral contrastusing helical scan annamaria technique with dynamic intravenous contrast injection. Images reviewed with lung, soft tissue a nd bone windows. Reconstructed coronal and sagittal MPR images reviewed. Delayed images for evaluat ion of the urinary system also acquired and evaluated. All images stored on PACS. All CT scanners at this facility use dose modulation, iterative reconstruction, and/or weight based d osing when appropriate to reduce radiation dose to as low as reasonably achievable (ALARA). [facility]: Dose Right [facility]: CareDose [facility]: Dose Right [facility]: Teradose 4D [facility]: [employer] RADIATION DOSE: CT Rad equipment meets quality standard of care and radiation dose reduction techniq ues were employed. CTDIvol: 4.4 - 4.5 mGy. DLP: 852 mGy-cm. . LIMITATIONS: None. FINDINGS: CHEST: LUNGS AND PLEURA: Since the prior CT chest 02/09/2018, a right-sided PleurX catheter has been placed. PleurX catheter is in the anterior pleural space just deep to the sternum on sagittal image 39. The re is now a moderate-sized persistent pleural effusion, decreased compared to 02/09/2018. No pneumoth orax. There is improved aeration of the right lung compared to 02/09/2018. There is still persistent right middle lobe and distal right mainstem bronchus narrowing without thin rind of soft tissue at the righ t hilum. Reticulonodular infiltrate throughout the right lung is present, likely representing lymphangitis spr ead of tumor. The mass at the right hilum seen on PET-CT 11/26/2017 is difficult to identify. The left lung is well inflated and grossly clear. HILAR AND MEDIASTINAL STRUCTURES: Small stable mediastinal lymph nodes as compared to 02/09/2018 as fo llows: 1.6 x 1 cm prevascular node axial image 17 1.4 x 1 cm prevascular lymph node axial image 22 Aortopulmonary window conglomerate adenopathy 2.7 x 1.7 cm axial image 23 9 mm pericardial phrenic lymph node axial image 47. HEART AND VASCULAR STRUCTURES: No aneurysm or dissection. No central pulmonary emboli. Small stable pericardial effusion, best shown on axial image 47. HARDWARE: Right PleurX catheter. Left permanent central line with the tip in the superior vena cava THYROID AND OTHER SOFT TISSUES: No masses. No adenopathy. BONES: No significant finding. OTHER: No other significant finding. ABDOMEN AND PELVIS: LIVER: Normal size. No masses. No dilated ducts. SPLEEN: Normal size. No focal lesions. PANCREAS: No masses. No significant calcifications. No adjacent inflammation or peripancreatic fluid collections. Pancreatic duct not dilated. GALLBLADDER: There is a tiny air bubble in the gallbladder, question prior sphincterotomy ADRENAL GLANDS: Right adrenal gland unremarkable. Unchanged 1 cm adenoma left adrenal gland RIGHT KIDNEY AND URETER: No solid masses. 5 mm right lower pole intrarenal nonobstructive stone. No hydronephrosis or hydroureter. LEFT KIDNEY AND URETER: No solid masses. No significant calcification. No hydronephrosis or hydrouret er. AORTA AND VESSELS: No aneurysm. No dissection. Calcified origins of the Renal arteries, SMA, celiac arteries. RETROPERITONEUM: No retroperitoneal adenopathy, hemorrhage or masses. BOWEL AND PERITONEAL CAVITY: No masses or inflammatory changes. No free fluid or peritoneal masses. APPENDIX: Not identified. No right lower quadrant inflammatory change ABDOMINAL WALL: No masses. No hernias. PELVIS: Right pelvic sidewall 2.7 x 1.8 cm nodule (was 3.1 x 2.1 cm on 02/09/2018). Normal bladder. Normal size female pelvic organs with IUD in the uterus BONES: No significant or acute findings. OTHER: No other significant finding. IMPRESSION: Moderate persistent pleural effusion in the right chest, PleurX catheter is in the anter ior right hemithorax on the current study. Improved aeration of the right lung, with persistent reticulonodular infiltrate likely lymphangitic t umor. Stable pericardial effusion Stable mediastinal adenopathy compared 02/09/2018 Slight decrease in size of right pelvic sidewall metastatic lesion compared to 02/09/2018 TECHNICAL DOCUMENTATION: JOB ID: [id number] Quality ID # [id number]: Final reports with documentation of one or more dose reduction techniques (e.g., Au tomated exposure control, adjustment of the mA and/or kV according to patient size, use of iterative reconstruction technique) 2010 [employer]- All Rights Reserved Reading location - IP/workstation name: [email or web address]
== END ==
LOC: RAD 10:06
PROVIDERS: ATTEND Internal Medicine
DX: C34.11 Malignant neoplasm of upper lobe, right bronchus or lung (principal); J90 Pleural effusion, not elsewhere classified; R19.03 Right lower quadrant abdominal swelling, mass and lump
CPT/HCPCS: 71260; 74177

== ENCOUNTER → 2018-07-10 | Outpatient (CLI) | payer BC ==
--- NOTE | 2018-07-10 14:05 | RADIOLOGY REPORT (SQ) ---
EXAM DESCRIPTION: CT CHEST WITH COMPLETED DATE/TIME: 07/10/2018 11:35 am REASON FOR STUDY: LUNG CA (C34.11) C34.11 MALIGNANT NEOPLASM OF UPPER LOBE, RIGHT BRONCHUS OR L COMPARISON: 05/14/2018, 02/09/2018, and 12/06/2017. TECHNIQUE: CT scan of the chest performed using helical scanning technique with dynamic intravenous contrast injection. Images reviewed with lung, soft tissue and bone windows. Reconstructed coronal and sagittal MPR and MIP images reviewed. All images stored on PACS. All CT scanners at this facility use dose modulation, iterative reconstruction, and/or weight based d osing when appropriate to reduce radiation dose to as low as reasonably achievable (ALARA). [facility]: Dose Right [facility]: CareDose [facility]: Dose Right [facility]: Teradose 4D [facility]: GENIAC CONTRAST TYPE AND DOSE: 63 mL Omnipaque 350- low osmolar. RENAL FUNCTION: BUN 17 creatinine 0.9. RADIATION DOSE: . LIMITATIONS: None. FINDINGS: LUNGS AND PLEURA: The previously seen moderate right pleural effusion has increased in siz e. Again seen is extensive reticulonodular pattern throughout the right lung which appears more prom inent. There is narrowing of the bronchus to the right middle lobe with peripheral soft tissue surro unding the bronchus. The spiculated right under that the spiculated mass anterior to the right hilum currently measures 2.0 x 2.6 cm with prior measurement approximately 2.1 by 2.4 cm. The left lung i s relatively clear. HILAR AND MEDIASTINAL STRUCTURES: Prevascular lymph node at the level of the aortic arch measures 1.2 x 1.2 cm with prior measurement 1.2 x 1.6 cm. Lymph node anterior to the ascending aorta measures 1 .3 x 1.3 cm with prior measurement 0.9 x 1.3 cm. The conglomerate lymph node in the aorta pulmonary window currently measures 1.2 x 2.9 cm with prior measurement 1.2 x 2.7 cm. The lymph node in the an terior right cardiophrenic angle currently measures 1.0 x 1.3 cm with prior measurement 9 mm. HEART AND VASCULAR STRUCTURES: No aneurysm or dissection. No central pulmonary emboli. Moderate per icardial effusion appears slightly larger. HARDWARE: Right-sided chest tube. Vascular access port. UPPER ABDOMEN: No significant findings. Limited exam. THYROID AND OTHER SOFT TISSUES: No masses. No adenopathy. BONES: No significant finding. OTHER: No other significant finding. IMPRESSION: 1. SPICULATED MASS ANTERIOR TO THE RIGHT HILUM HAS INCREASED SLIGHTLY IN SIZE. EXTENSIVE RETICULONOD ULAR PATTERN THROUGHOUT THE RIGHT LUNG APPEARS SLIGHTLY WORSE AND IS CONSISTENT WITH LYMPHANGITIC SPR EAD OF TUMOR. 2. MODERATE RIGHT PLEURAL EFFUSION WHICH HAS INCREASED IN SIZE. 3. MEDIASTINAL ADENOPATHY HAS INCREASED IN SIZE SLIGHTLY SINCE THE PRIOR STUDY. 4. MODERATE PERICARDIAL EFFUSION HAS INCREASED SLIGHTLY SINCE THE PRIOR STUDY. TECHNICAL DOCUMENTATION: JOB ID: [id number] Quality ID # [id number]: Final reports with documentation of one or more dose reduction techniques (e.g., Au tomated exposure control, adjustment of the mA and/or kV according to patient size, use of iterative reconstruction technique) 2010 [employer]- All Rights Reserved Reading location - IP/workstation name: [email or web address]
--- NOTE | 2018-07-10 14:16 | RADIOLOGY REPORT (SQ) ---
EXAM DESCRIPTION: CT ABD/PELVIS WITH IV ONLY COMPLETED DATE/TIME: 07/10/2018 11:35 am REASON FOR STUDY: LUNG CA (C34.11) C34.11 MALIGNANT NEOPLASM OF UPPER LOBE, RIGHT BRONCHUS OR L COMPARISON: 05/14/2018 and 02/09/2018. TECHNIQUE: CT scan of the abdomen and pelvis performed using helical scanning technique with dynamic intravenous contrast injection. No oral contrast. Images reviewed with lung, soft tissue, and bone windows. Reconstructed coronal and sagittal MPR images reviewed. Delayed images for evaluation of the urinary system also acquired. All images stored on PACS. All CT scanners at this facility use dose modulation, iterative reconstruction, and/or weight based d osing when appropriate to reduce radiation dose to as low as reasonably achievable (ALARA). [facility]: Dose Right [facility]: CareDose [facility]: Dose Right [facility]: Teradose 4D [facility]: Talk[employer] CONTRAST TYPE AND DOSE: contrast/concentration: Isovue 350.00 mg/ml; Total Contrast Delivered: 63.0 ml; Total Saline Delivered: 65.0 ml RENAL FUNCTION: BUN 17 creatinine 0.9. RADIATION DOSE: CT Rad equipment meets quality standard of care and radiation dose reduction techniq ues were employed. CTDIvol: 4.6 - 5.0 mGy. DLP: 961 mGy-cm.. LIMITATIONS: None. FINDINGS: LOWER CHEST: See separate report of the CT of the chest. LIVER: Normal size. No masses. No dilated ducts. SPLEEN: Normal size. No focal lesions. PANCREAS: No masses. No significant calcifications. No adjacent inflammation or peripancreatic fluid collections. Pancreatic duct not dilated. GALLBLADDER: No identified stones by CT criteria. Possible faint layering material in the gallbladde r versus streak artifact. No inflammatory changes to suggest cholecystitis. ADRENAL GLANDS: Stable left adrenal nodule. RIGHT KIDNEY AND URETER: No solid masses. No significant calcifications. No hydronephrosis or hyd roureter. LEFT KIDNEY AND URETER: No solid masses. No significant calcifications. No hydronephrosis or hydr oureter. AORTA AND VESSELS: No aneurysm. No dissection. Renal arteries, SMA, celiac without stenosis. RETROPERITONEUM: There is a small liliya aortic lymph node in the upper abdomen located between the abd ominal aorta and intrahepatic inferior vena cava which currently measures 0.8 x 1.3 cm. Prior measur ement 1 cm. There is a lymph node located on the left side of the abdominal aorta just posterior to the left renal vein, current measurement 1.0 cm and prior measurement 0.7 cm. BOWEL AND PERITONEAL CAVITY: No masses or inflammatory changes. No free fluid or peritoneal masses. APPENDIX: Normal. PELVIS: The lymph node in the right pelvic sidewall currently measures 2.4 x 3.5 cm with prior measur ement 1.8 x 2.7 cm. A 2nd lymph node in the right iliac chain located just medial to the acetabulum currently measures 2.0 x 2.3 cm with prior measurement 1.3 cm. Right inguinal lymph node currently m easures 1.6 cm with prior measurement 1.3 cm. IUD in the uterus. No free fluid. Normal bladder. ABDOMINAL WALL: No masses. No hernias. BONES: No significant or acute findings. OTHER: No other significant finding. IMPRESSION: 1. WORSENING RIGHT PELVIC AND RIGHT INGUINAL ADENOPATHY. THERE IS ALSO WORSENING UPPER RETROPERITONE AL ADENOPATHY. 2. QUESTIONABLE FAINT SLUDGE IN THE GALLBLADDER VERSUS STREAK ARTIFACT. 3. STABLE LEFT ADRENAL NODULE. 4. NO OTHER SIGNIFICANT OR ACUTE FINDING IN THE ABDOMEN OR PELVIS ON CT SCAN WITH IV CONTRAST. TECHNICAL DOCUMENTATION: JOB ID: [id number] Quality ID # [id number]: Final reports with documentation of one or more dose reduction techniques (e.g., Au tomated exposure control, adjustment of the mA and/or kV according to patient size, use of iterative reconstruction technique) 2010 [employer]- All Rights Reserved Reading location - IP/workstation name: [email or web address]
--- NOTE | 2018-07-10 14:29 | RADIOLOGY REPORT (SQ) ---
EXAM DESCRIPTION: MRI HEAD COMBO COMPLETED DATE/TIME: 07/10/2018 12:52 pm REASON FOR STUDY: LUNG CA (C34.11) C34.11 MALIGNANT NEOPLASM OF UPPER LOBE, RIGHT BRONCHUS OR L COMPARISON: CT dated 01/25/2016. TECHNIQUE: Multiplanar imaging includes noncontrasted T1, T2, FLAIR, and Diffusion with ADC map seq uences. Contrast enhanced T1 images. Images stored on PACS. CONTRAST TYPE AND DOSE: 10 mL Dotarem. RENAL FUNCTION: Not indicated. ACR Type II contrast agent associated with few, if any, unconfounded cases of NSF LIMITATIONS: None. FINDINGS: ANATOMY: No anomalies. Normal vascular flow voids. Pituitary fossa normal. CSF SPACES: Normal size and contour. No hemorrhage. CEREBRUM: Scattered high-signal intensity lesions scattered throughout the white matter on FLAIR imag ing with distribution suggesting chronic microvascular ischemic change. Sulci and gyri normal in size and contour. No evidence of hemorrhage, mass or extraaxial fluid collection. No enhancing lesions. POSTERIOR FOSSA: No signal alteration. No hemorrhage. No edema, masses or mass effect. Internal audit ory canals, cerebello-pontine angles, mastoids normal. DIFFUSION: Negative for acute or subacute infarction. ORBITS: No masses. Globes normal. PARANASAL SINUSES: No fluid levels. Mucosa normal. OTHER: No other significant finding. IMPRESSION: NO ENHANCING LESIONS. MICROVASCULAR ISCHEMIC CHANGE. OTHERWISE NORMAL STUDY. EVIDENCE OF ACUTE STROKE: NO. TECHNICAL DOCUMENTATION: JOB ID: [id number] [employer]- All Rights Reserved Reading location - IP/workstation name: [email or web address]
== END ==
LOC: RAD 10:35
PROVIDERS: ATTEND Internal Medicine
DX: C34.11 Malignant neoplasm of upper lobe, right bronchus or lung (principal); J90 Pleural effusion, not elsewhere classified
CPT/HCPCS: 70553; 71260; 74177; A9576